=== PATIENT | female | born 1960 | race Caucasian/White ===

== ENCOUNTER → 2017-07-25 | Outpatient (CLI) | payer BC ==
--- NOTE | 2017-07-26 14:16 | WOMENS IMAGING REPORT ---
EXAM DESCRIPTION: 3D SCREENING MAMMO BILAT COMPLETED DATE/TIME: 07/25/2017 3:04 pm REASON FOR STUDY: SCREENING MAMMO Z12.31 ENCNTR SCREEN MAMMOGRAM FOR MALIGNANT NEOPLASM OF SAMANTA COMPARISON: 2011 to 2015 TECHNIQUE: Standard craniocaudal and mediolateral oblique views of each breast recorded using digita l acquisition and breast tomosynthesis. LIMITATIONS: None. FINDINGS: No masses, calcifications or architectural distortion. No areas of suspicion. Read with the assistance of CAD. .[facility] - R2 Cenova Version 1.3 .[facility] - R2 Cenova Version 1.3 .[facility] - R2 Cenova Version 2.4 .[facility] [place] - R2 Cenova Version 2.4 .[facility] - R2 Director Of Optimization Version 9.2 IMPRESSION: NORMAL MAMMOGRAM. BIRADS 1. BREAST DENSITY: b. There are scattered areas of fibroglandular density. BIRAD: 1 NEGATIVE RECOMMENDATION: ROUTINE SCREENING COMMENT: The patient has been notified of the results by letter per SA requirements. Additional no tification policies are in place for contacting patient with suspicious or incomplete findings. Quality ID #[id number]: The [employer] recommends an annual screening mammogram for women aged 40 years or over. This facility utilizes a reminder system to ensure that all patients receive reminder letters, and/or direct phone calls for appointments. This includes reminders for routine scr eening mammograms, diagnostic mammograms, or other Breast Imaging Interventions when appropriate. Th is patient will be placed in the appropriate reminder system. The [employer] (ACR) has developed recommendations for screening MRI of the breast s in certain patient populations, to be used in conjunction with mammography. Breast MRI surveillanc e may be appropriate for women with more than 20% lifetime risk of developing breast cancer as deter mined by genetic testing, significant family history of the disease, or history of mantle radiation f or Hodgkins Disease. ACR Practice Guidelines 2008. DBT Technology DBT is a type of tomographic mammography. With conventional mammography, overlapping breast tissue ma y make lesions difficult to detect, even with good compression. DBT uses an x-ray tube that rotates a round the breast, taking images at different angles. These images are then combined to create thin sl ices of the breast that the radiologist can view as a 3D reconstruction. The [facility] unit can perform full-field digital mammograms (2D imaging); or DBT (3D imaging); or both, in a combination mode that quickly performs both the mammogram and the tomosynthesis scan while the breast is still compressed. PQRS 6045F: Fluoroscopic imaging is not utilized for breast tomosynthesis. TECHNICAL DOCUMENTATION: FINDING NUMBER: (1) ASSESSMENT: (1) JOB ID: [id number] [employer]- All Rights Reserved
== END ==
LOC: WI 14:59
PROVIDERS: ATTEND Specialist
DX: Z12.31 Encounter for screening mammogram for malignant neoplasm of breast (principal)
CPT/HCPCS: 77063; G0202; 77067

== ENCOUNTER 2018-04-03 01:18 | Emergency (ER) | payer BC ==
[2018-04-03] MEDS ORDERED: ASPIRIN 81 MG TABLET, CHEWABLE PO ONE (02:11)
--- NOTE | 2018-04-03 02:11 | ER Document Report ---
ED General - General Chief Complaint: High Blood Pressure Stated Complaint: BLOOD PRESSURE ISSUES Time Seen by Provider: 04/03/18 01:51 Notes: This is a 57-year-old female to the emergency department for evaluation of chest tightness and high blood pressure. Patient states that she is dealing with issues with her 23-year-old son. There was a heated argument. Afterwards her blood pressure was 170/100 and had some tightness in her chest. Tingling in her left hand as well. No syncope. Did not pass out. No significant amount of pain at this time. TRAVEL OUTSIDE OF THE [place] IN LAST 30 DAYS: No - HPI Onset: Just prior to arrival Onset/Duration: Gradual, Better Severity: Mild Pain Level: 0 - Related Data Allergies/Adverse Reactions: tetracycline [Tetracycline] Allergy (Verified 03/21/13 17:59) Past Medical History - General Information source: Patient - Social History Smoking Status: Never Smoker Frequency of alcohol use: None Drug Abuse: None Lives with: Spouse/Significant other Family History: Reviewed & Not Pertinent - Past Medical History Cardiac Medical History: Reports: Hx Hypercholesterolemia, Hx Hypertension Endocrine Medical History: Reports: Hx Diabetes Mellitus Type 2 Past Surgical History: Reports: Hx Appendectomy, Hx Tonsillectomy, Hx Tubal Ligation - Immunizations Immunizations up to date: Yes Hx Diphtheria, Pertussis, Tetanus Vaccination: Yes Review of Systems - Review of Systems Notes: Constitutional: denies: Chills, Diaphoresis, Fever, Malaise, Weakness EENT: denies: Eye discharge, Blurred vision, Tearing, Double vision, Nose congestion, Nose discharge, Throat swelling, Mouth pain Cardiovascular: denies: Palpitations, Heart racing, Orthopnea, Dyspnea, Chest pain. Does feel like she might have some tightness in her chest. Respiratory: denies: Hurts to breathe, Wheezing, Shortness of breath. Does have a mild intermittent cough. Gastrointestinal: denies: Abdominal pain, Diarrhea, Nausea, Vomiting, Black stools, bright red blood in stool Genitourinary: denies: Burning, Dysuria, Discharge, Frequency, Flank pain, Hematuria Musculoskeletal: denies: Joint pain, Joint swelling, Muscle pain, Muscle stiffness, back pain Hematologic/Lymphatic: denies: Anemia, Easy bleeding, Easy bruising, Blood clots Neurological/Psychological: denies: Confusion, Dementia, Depression, Loss of consciousness, does have some mild tingling in her left hand. Skin: No lesions, no masses, no skin breakdown, no abscesses Physical Exam - Vital signs Vitals: Temp Pulse Resp BP Pulse Ox 98.2 F 89 20 151/81 H 100 04/03/18 01:33 04/03/18 01:33 04/03/18 01:33 04/03/18 01:33 04/03/18 01:33 Interpretation: Normal - General General appearance: Appears well, Alert - HEENT Head: Normocephalic, Atraumatic Eyes: Normal Pupils: PERRL - Respiratory Respiratory status: No respiratory distress Chest status: Nontender Breath sounds: Normal Chest palpation: Normal - Cardiovascular Rhythm: Regular Heart sounds: Normal auscultation Murmur: No - Abdominal Inspection: Normal Distension: No distension Bowel sounds: Normal Tenderness: Nontender Organomegaly: No organomegaly - Back Back: Normal, Nontender - Extremities General upper extremity: Normal inspection, Nontender, Normal color, Normal ROM , Normal temperature General lower extremity: Normal inspection, Nontender, Normal color, Normal ROM , Normal temperature, Normal weight bearing. No: Hina's sign - Neurological Neuro grossly intact: Yes Cognition: Normal Orientation: AAOx4 Jaelyn Coma Scale Eye Opening: Spontaneous Jaelyn Coma Scale Verbal: Oriented [place] Coma Scale Motor: Obeys Commands [place] Coma Scale Total: 15 Speech: Normal Motor strength normal: LUE, RUE, LLE, RLE Sensory: Normal - Psychological Associated symptoms: Normal affect, Normal mood - Skin Skin Temperature: Warm Skin Moisture: Dry Skin Color: Normal Course - Re-evaluation Re-evalutation: 04/03/18 05:27 First set of cardiac labs were unremarkable. Slight elevated WBC count. Chest pain/pressure is resolved. Tingling in her left hand has been resolved. I discussed with her about being admitted to the hospital. Patient is not sure she wants to do that at this time. Currently I am repeating the cardiac troponin. She would like to see what the result is before saying whether she will stay or not. 04/03/18 06:30 Second troponin negative. Offered admission but patient has refused. Wants to go home. Patient will be signed out AMA. Long discussion had with patient with regards to worsening pain. Patient understands that if she develops any worsening pain she needs to return. Patient wants to follow-up with her regular doctor as an outpatient. Will DC at this time. - Vital Signs Vital signs: Temp Pulse Resp BP Pulse Ox 98.2 F 89 20 151/81 H 98 04/03/18 01:33 04/03/18 01:33 04/03/18 01:33 04/03/18 01:33 04/03/18 02:22 - Laboratory Result Diagrams: 04/03/18 02:20 04/03/18 02:20 Laboratory results interpreted by me: 04/03/18 04/03/18 02:20 02:20 WBC 11.9 H RDW 15.4 H Sodium 147.0 H Chloride 108 H Est GFR (Non-Af Amer) 52 L Glucose 152 H - EKG Interpretation by Me EKG shows normal: Sinus rhythm, Avant, Intervals, QRS Complexes, ST-T Waves Discharge - Discharge Clinical Impression: Hypertension Qualifiers: Hypertension type: unspecified Qualified Code(s): I10 - Essential (primary) hypertension Chest pain Qualifiers: Chest pain type: unspecified Qualified Code(s): R07.9 - Chest pain, unspecified Condition: Good Disposition: HOME, SELF-CARE Instructions: High Blood Pressure ([facility]), Chest Pain of Unclear Cause ([facility]) Additional Instructions: Please follow-up with your primary care doctor. It would be beneficial for you to have a repeat stress test. This was offered to you today but you have decided not to be admitted for this further testing. In the event that your pain gets worse, you develop shortness of breath, you pass out or you have any concerning symptoms please return. Referrals: JAQUAN HUIZAR MD [Primary Care Provider] - 04/04/18 8:00 am
[2018-04-03 02:33] LABS: ABSOLUTE BASOPHILS # (AUTO) 0.1 10^3/uL (0.0-0.2); ABSOLUTE EOSINOPHILS # (AUTO) 0.1 10^3/uL (0.0-0.6); ABSOLUTE LYMPHOCYTES (AUTO) 3.2 10^3/uL (0.5-4.7); ABSOLUTE MONOCYTES (AUTO) 0.7 10^3/uL (0.1-1.4); ABSOLUTE NEUT (AUTO) 7.8 10^3/uL (1.7-8.2); BASOPHILS % (AUTO) 0.9 % (0-2); EOSINOPHILS % (AUTO) 1.2 % (0-6); HEMATOCRIT 43.8 % (36.0-47.0); HEMOGLOBIN 14.4 g/dL (12.0-15.5); LYMPHOCYTES % (AUTO) 26.7 % (13-45); MEAN CORPUSCULAR HEMOGLOBIN 27.5 pg (27.0-33.4); MEAN CORPUSCULAR HGB CONC 32.9 g/dL (32.0-36.0); MEAN CORPUSCULAR VOLUME 83 fl (80-97); PLATELET COUNT 270 10^3/uL (150-450); RED BLOOD COUNT 5.25 10^6/uL (3.72-5.28); RED CELL DISTRIBUTION WIDTH 15.4 % (11.5-14.0); SEGMENTED NEUTROPHILS % (AUTO) 65.2 % (42-78); TOTAL CELLS COUNTED % (AUTO) 100 %; WHITE BLOOD COUNT 11.9 10^3/uL (4.0-10.5)
[2018-04-03 02:50] LABS: ALANINE AMINOTRANSFERASE 29 U/L (9-52); ALKALINE PHOSPHATASE 109 U/L (38-126); ANION GAP 15 (5-19); ASPARTATE AMINO TRANSFERASE 33 U/L (14-36); BILIRUBIN,DIRECT 0.4 mg/dL (0.0-0.4); BILIRUBIN,TOTAL 0.4 mg/dL (0.2-1.3); BLOOD UREA NITROGEN 17 mg/dL (7-20); CALCIUM 9.5 mg/dL (8.4-10.2); CARBON DIOXIDE 24 mmol/L (22-30); CHLORIDE 108 mmol/L (98-107); CREATINE KINASE 36 U/L (30-135); GLUCOSE 152 mg/dL (75-110); POTASSIUM 4.3 mmol/L (3.6-5.0); TOTAL PROTEIN 7.4 g/dL (6.3-8.2)
[2018-04-03 03:00] LABS: CREATINE KINASE MB 0.44 ng/mL (<4.55)
--- NOTE | 2018-04-03 03:00 | RADIOLOGY REPORT (SQ) ---
EXAM DESCRIPTION: XR CHEST 1 VIEW COMPLETED DATE/TME: 04/03/2018 02:11 CLINICAL HISTORY: chest tightness, cough COMPARISON: None. FINDINGS: Single frontal view of the chest. Leads overlie the chest. The cardiomediastinal silhouette has normal size and contour. No consolidation, pneumothorax, or pleural effusion. No displaced rib fractures identified. Upper abdominal soft tissues are unremarkable. IMPRESSION: 1. No acute pulmonary process identified.
[2018-04-03 03:01] LABS: TROPONIN I < 0.012 ng/mL
[2018-04-03 06:57] VITALS: BP 136/90
--- NOTE | 2018-04-03 09:35 | EKG REPORT ---
SEVERITY:- BORDERLINE ECG - SINUS RHYTHM BORDERLINE R WAVE PROGRESSION, ANTERIOR LEADS : Confirmed by: Griffin Vargas 03-Apr-2018 09:33:52
== END 2018-04-03 06:44 | disposition home or self-care (01) ==
LOC: ER 01:18
DX: I10 Essential (primary) hypertension (principal); R07.89 Other chest pain; Z88.1 Allergy status to other antibiotic agents
CPT/HCPCS: 36415; 71045; 80053; 82550; 82553; 84484; 85025; 93005; 93010; 99284

== ENCOUNTER 2018-07-26 19:19 | Emergency (ER) | payer BC ==
[2018-07-26] MEDS ORDERED: OXYCODONE-ACETAMINOPHEN 5-325 MG TABLET PO ONE (20:03)
[2018-07-26] MEDS ORDERED: ONDANSETRON 4 MG TAB.RAPDIS PO ONE (20:03)
--- NOTE | 2018-07-26 20:05 | ER Document Report ---
ED General - General Chief Complaint: Hip Injury Stated Complaint: SEVERE LEFT HIP PAIN Time Seen by Provider: 07/26/18 19:46 Notes: Patient is a 57-year-old female that comes to the emergency department for chief complaint of lower back pain and left hip pain. She states she slipped awkwardly and caught herself on a railing, she did not hit the ground, she did not hit the railing, however now she has sharp pain in her lower back that is so sharp that she is having trouble walking. She denies numbness, pain does not radiate down the leg but it does radiate into the hip. She states she has struggled with left hip pain for a long time. She denies surgeries or injuries to the area particularly. She denies accidentally defecating, she states she urinated normally, she denies fever, she denies any other locations of pain. Past medical history of tubal ligation, hypertension, hyperlipidemia. Denies medical history otherwise. TRAVEL OUTSIDE OF THE [place] IN LAST 30 DAYS: No - Related Data Allergies/Adverse Reactions: tetracycline [Tetracycline] Allergy (Verified 03/21/13 17:59) Past Medical History - General Information source: Patient - Social History Smoking Status: Never Smoker Frequency of alcohol use: None Drug Abuse: None Lives with: Spouse/Significant other Family History: Reviewed & Not Pertinent - Past Medical History Cardiac Medical History: Reports: Hx Hypercholesterolemia, Hx Hypertension Renal/ Medical History: Denies: Hx Peritoneal Dialysis Past Surgical History: Reports: Hx Appendectomy, Hx Tonsillectomy, Hx Tubal Ligation - Immunizations Immunizations up to date: Yes Hx Diphtheria, Pertussis, Tetanus Vaccination: Yes Review of Systems - Review of Systems Constitutional: No symptoms reported EENT: No symptoms reported Cardiovascular: No symptoms reported Respiratory: No symptoms reported Gastrointestinal: No symptoms reported Genitourinary: No symptoms reported Female Genitourinary: No symptoms reported Musculoskeletal: See HPI Skin: No symptoms reported Hematologic/Lymphatic: No symptoms reported Neurological/Psychological: No symptoms reported Physical Exam - Vital signs Vitals: Temp Pulse Resp BP Pulse Ox 98.4 F 88 20 135/86 H 97 07/26/18 19:29 07/26/18 19:29 07/26/18 19:29 07/26/18 19:29 07/26/18 19:29 - Notes Notes: GENERAL: Patient obviously uncomfortable, wincing, shifting her weight on the bed HEAD: Normocephalic, atraumatic. EYES: Pupils equal, round, and reactive to light. Extraocular movements intact. ENT: Oral mucosa moist, tongue midline. Oropharynx unremarkable. Airway patent. Nares patent, no nasal septal hematoma, TM's intact. NECK: Full range of motion. Supple. Trachea midline. LUNGS: Clear to auscultation bilaterally, no wheezes, rales, or rhonchi. No respiratory distress. HEART: Regular rate and rhythm. No murmur ABDOMEN: Soft, non-tender. Non-distended. Bowel sounds present in all 4 quadrants. GENITOURINARY: Deferred EXTREMITIES: There is pain with palpation over the left hip and over the left moves all 4 extremities spontaneously. No edema, normal radial and dorsalis pedis pulses bilaterally. No cyanosis. Femoral bursa area. BACK: Pain with palpation of the left paraspinal musculature extending to the gluteus musculature. No cervical, thoracic, lumbar midline tenderness. No saddle anesthesia, normal distal neurovascular exam. NEUROLOGICAL: Alert and oriented x3. Normal speech. [cranial nerves II through XII grossly intact]. SKIN: Warm, dry, normal turgor. No rashes or lesions noted. Course - Re-evaluation Re-evalutation: On examination the area of pain appears to be the left paralumbar musculature extending to the left gluteal muscle, appears to be a bad muscle spasm, patient intermittently wincing or whimpering and appears uncomfortable. X-ray of the hip unremarkable. No neurological deficits. I have low suspicion of spinal cord compression, epidural abscess, infection based on her evaluation and symptoms reported. Patient was provided with pain medication and eventually IM Valium for the muscle spasm, muscle spasm did stop after this. Her symptom resolution is reassuring. Patient states she is ready to go home. I discussed treatment at home, expectations, follow-up, and return precautions. Patient states understanding and agreement. - Vital Signs Vital signs: Temp Pulse Resp BP Pulse Ox 97.7 F 73 18 131/74 H 96 07/26/18 22:49 07/26/18 22:49 07/26/18 22:49 07/26/18 22:49 07/26/18 22:49 Discharge - Discharge Clinical Impression: Muscle spasm Lower back pain Qualifiers: Chronicity: acute Back pain laterality: left Sciatica presence: without sciatica Qualified Code(s): M54.5 - Low back pain Condition: Stable Disposition: HOME, SELF-CARE Additional Instructions: The x-rays of the hip/pelvis are unremarkable. Your evaluation is consistent with muscle strain and back spasm. Take medications as prescribed, apply heat to the area, do gentle stretches and rest. This should resolve with time. Follow-up with primary care for additional evaluation and management of your back. Return if you worsen including numbness, inability to urinate, accidentally having a bowel movement, fever, or any other concerning or worsening symptoms. Prescriptions: Diazepam [Valium 5 mg Tablet] 1 - 2 tab PO TID PRN #12 tablet PRN Reason: Naproxen [Naprosyn 375 Mg Tablet] 375 mg PO BID PRN #20 tablet PRN Reason: Referrals: MAXI JOHNSON MD [ACTIVE STAFF] - Follow up as needed
--- NOTE | 2018-07-26 20:43 | RADIOLOGY REPORT (SQ) ---
EXAM DESCRIPTION: HIP LEFT AP/LATERAL COMPLETED DATE/TIME: 07/26/2018 8:12 pm REASON FOR STUDY: Fell from standing at home . Posterior hip pain that radiates to the groin. COMPARISON: None. NUMBER OF VIEWS: Two views. TECHNIQUE: AP pelvis and additional frog-leg view of the left hip. LIMITATIONS: None. FINDINGS: There is no acute fracture or dislocation. The bilateral hip joints are maintained. Tuba l ligation devices are noted at the pelvis. The soft tissues are unremarkable. IMPRESSION: No radiographic evidence for acute fracture or dislocation at the left hip. TECHNICAL DOCUMENTATION: JOB ID: [id number] 2010 [employer]- All Rights Reserved Reading location - IP/workstation name: [email or web address]
[2018-07-26] MEDS ORDERED: DIAZEPAM INJ 10 MG/2 ML DISP.SYRIN IM ONE (21:25)
[2018-07-26] MEDS ORDERED: NAPROXEN 250 MG TABLET PO ONE (21:54)
[2018-07-26 23:01] VITALS: BP 131/74
== END 2018-07-26 22:59 | disposition home or self-care (01) ==
LOC: ER 19:19
DX: M54.5 Low back pain (principal); M62.838 Other muscle spasm; W01.0XXA Fall on same level from slipping, tripping and stumbling without subsequent striking against object, initial encounter; I10 Essential (primary) hypertension; E78.5 Hyperlipidemia, unspecified; Z98.51 Tubal ligation status
CPT/HCPCS: 99283; 96372; 73502; J3360; S0119

== ENCOUNTER → 2018-07-28 | Outpatient (CLI) | payer BC ==
--- NOTE | 2018-07-28 15:18 | WOMENS IMAGING REPORT ---
EXAM DESCRIPTION: BILAT SCREENING MAMMO W/CAD COMPLETED DATE/TIME: 07/28/2018 9:00 am REASON FOR STUDY: SCREENING MAMMO Z12.31 ENCNTR SCREEN MAMMOGRAM FOR MALIGNANT NEOPLASM OF SAMANTA COMPARISON: 2012 to 2016 TECHNIQUE: Standard craniocaudal and mediolateral oblique views of each breast recorded using digita l acquisition. LIMITATIONS: None. FINDINGS: No masses, calcifications or architectural distortion. No areas of suspicion. Read with the assistance of CAD. .[facility] - R2 Cenova Version 1.3 .[facility] Imaging - R2 Cenova Version 1.3 .[facility] - R2 Cenova Version 2.4 .[facility] [place] - R2 Cenova Version 2.4 .[facility] - R2 Commercial [employer] Underwriter Version 9.2 IMPRESSION: NORMAL MAMMOGRAM. BIRADS 1. BREAST DENSITY: a. The breasts are almost entirely fatty. BIRAD: 1 NEGATIVE RECOMMENDATION: ROUTINE SCREENING COMMENT: The patient has been notified of the results by letter per MQSA requirements. Additional no tification policies are in place for contacting patient with suspicious or incomplete findings. Quality ID #[id number]: The [employer] recommends an annual screening mammogram for women aged 40 years or over. This facility utilizes a reminder system to ensure that all patients receive reminder letters, and/or direct phone calls for appointments. This includes reminders for routine scr eening mammograms, diagnostic mammograms, or other Breast Imaging Interventions when appropriate. Th is patient will be placed in the appropriate reminder system. The [employer] (ACR) has developed recommendations for screening MRI of the breast s in certain patient populations, to be used in conjunction with mammography. Breast MRI surveillanc e may be appropriate for women with more than 20% lifetime risk of developing breast cancer as deter mined by genetic testing, significant family history of the disease, or history of mantle radiation f or Hodgkins Disease. ACR Practice Guidelines 2008. TECHNICAL DOCUMENTATION: FINDING NUMBER: (1) ASSESSMENT: (1) JOB ID: [id number] [employer]- All Rights Reserved Reading location - IP/workstation name: [email or web address]
== END ==
LOC: WI 07:36
PROVIDERS: ATTEND Specialist
DX: Z12.31 Encounter for screening mammogram for malignant neoplasm of breast (principal)
CPT/HCPCS: 77067

== ENCOUNTER 2018-11-20 11:48 | Emergency (ER) | payer BC, OTHER ==
--- NOTE | 2018-11-20 12:31 | ER Document Report ---
ED Medical Screen (RME) - General Chief Complaint: Dizziness Stated Complaint: BLOOD PRESSURE ISSUES Time Seen by Provider: 11/20/18 12:25 Primary Care Provider: JOSE ALBERTO MEHTA PA [Primary Care Provider] - Follow up as needed TRAVEL OUTSIDE OF THE [place] IN LAST 30 DAYS: No - HPI Notes: 11/20/18 12:29 Patient is a 58-year-old female with a history of hypertension and diabetes as well as hypothyroidism who presents the emergency department complaining of dizziness, lightheadedness and feeling fatigued that began this morning. The doctor at her facility thought that she may have had a decrease in her sugar as her symptoms started after she began taking any medicine for diabetes. Patient states that since then she has started feeling better, but does continue to feel fatigued. She has not had any chest pain or dyspnea on exertion/shortness of breath. She is eating and drinking without difficulty. She is urinating normally. Denies GER[place], fever, neck pain, URI, CP, SOB, Abd pain, or rash. I have treated and performed a rapid initial assessment of this patient. A comprehensive ED assessment and evaluation of the patient, analysis of test results and completion of medical decision making process will be conducted by additional ED providers. PHYSICAL EXAMINATION: GENERAL: Well-appearing, well-nourished and in no acute distress. A&Ox4. Answers questions appropriately. LUNGS: Breath sounds clear to auscultation bilaterally and equal. No wheezes rales or rhonchi. HEART: Regular rate and rhythm without murmurs, rubs, gallops. Extremities: Trace pitting b/l LE's. NEUROLOGICAL: Normal speech, normal gait. PSYCH: Normal mood, normal affect. - Related Data Allergies/Adverse Reactions: tetracycline [Tetracycline] Allergy (Verified 03/21/13 17:59) Past Medical History - Social History Frequency of alcohol use: None - Past Medical History Cardiac Medical History: Reports: Hx Hypercholesterolemia, Hx Hypertension Endocrine Medical History: Reports: Hx Diabetes Mellitus Type 2 Renal/ Medical History: Denies: Hx Peritoneal Dialysis Past Surgical History: Reports: Hx Appendectomy, Hx Tonsillectomy, Hx Tubal Ligation - Immunizations Immunizations up to date: Yes Hx Diphtheria, Pertussis, Tetanus Vaccination: Yes Physical Exam - Vital signs Vitals: Temp Pulse Resp BP Pulse Ox 98.0 F 73 20 141/85 H 97 11/20/18 12:03 11/20/18 12:03 11/20/18 12:03 11/20/18 12:03 11/20/18 12:03 Course - Vital Signs Vital signs: Temp Pulse Resp BP Pulse Ox 98.0 F 73 20 141/85 H 97 11/20/18 12:03 11/20/18 12:03 11/20/18 12:03 11/20/18 12:03 11/20/18 12:03 Doctor's Discharge - Discharge Referrals: JOSE ALBERTO MEHTA PA [Primary Care Provider] - Follow up as needed
[2018-11-20 12:55] LABS: ABSOLUTE BASOPHILS # (AUTO) 0.1 10^3/uL (0.0-0.2); ABSOLUTE EOSINOPHILS # (AUTO) 0.1 10^3/uL (0.0-0.6); ABSOLUTE LYMPHOCYTES (AUTO) 3.3 10^3/uL (0.5-4.7); ABSOLUTE MONOCYTES (AUTO) 0.6 10^3/uL (0.1-1.4); ABSOLUTE NEUT (AUTO) 5.7 10^3/uL (1.7-8.2); BASOPHILS % (AUTO) 0.5 % (0-2); EOSINOPHILS % (AUTO) 1.4 % (0-6); HEMATOCRIT 47.7 % (36.0-47.0); HEMOGLOBIN 15.9 g/dL (12.0-15.5); LYMPHOCYTES % (AUTO) 33.8 % (13-45); MEAN CORPUSCULAR HEMOGLOBIN 28.3 pg (27.0-33.4); MEAN CORPUSCULAR HGB CONC 33.3 g/dL (32.0-36.0); MEAN CORPUSCULAR VOLUME 85 fl (80-97); MONOCYTES % (AUTO) 6.4 % (3-13); PLATELET COUNT 285 10^3/uL (150-450); RED BLOOD COUNT 5.61 10^6/uL (3.72-5.28); RED CELL DISTRIBUTION WIDTH 14.7 % (11.5-14.0); SEGMENTED NEUTROPHILS % (AUTO) 57.9 % (42-78); TOTAL CELLS COUNTED % (AUTO) 100 %; WHITE BLOOD COUNT 9.8 10^3/uL (4.0-10.5)
[2018-11-20 13:01] LABS: APPEARANCE,URINE SLIGHTLY-CLOUDY; BILIRUBIN,URINE NEGATIVE (NEGATIVE); COLOR,URINE STRAW; GLUCOSE, URINE >=500 mg/dL (NEGATIVE); KETONES,URINE NEGATIVE (NEGATIVE); LEUKOCYTE ESTERASE,URINE TRACE (NEGATIVE); NITRITE,URINE NEGATIVE (NEGATIVE); PROTEIN,URINE NEGATIVE (NEGATIVE); URINE SPECIFIC GRAVITY 1.001; UROBILINOGEN,URINE NEGATIVE mg/dL (<2.0)
[2018-11-20 13:24] LABS: ALANINE AMINOTRANSFERASE 27 U/L (9-52); ALBUMIN 4.6 g/dL (3.5-5.0); ALKALINE PHOSPHATASE 127 U/L (38-126); ANION GAP 12 (5-19); ASPARTATE AMINO TRANSFERASE 31 U/L (14-36); BILIRUBIN,DIRECT 0.3 mg/dL (0.0-0.4); BILIRUBIN,TOTAL 0.6 mg/dL (0.2-1.3); BLOOD UREA NITROGEN 19 mg/dL (7-20); CALCIUM 10.8 mg/dL (8.4-10.2); CARBON DIOXIDE 28 mmol/L (22-30); CHLORIDE 101 mmol/L (98-107); GLUCOSE 114 mg/dL (75-110); PHOSPHORUS 4.8 mg/dL (2.5-4.5); POTASSIUM 3.8 mmol/L (3.6-5.0); SODIUM 141.4 mmol/L (137-145); TOTAL PROTEIN 8.4 g/dL (6.3-8.2)
[2018-11-20] MEDS ORDERED: NORMAL SALINE 1000 ML 1,000 ML IV ONE (15:29)
--- NOTE | 2018-11-20 16:36 | ER Document Report ---
ED General - General Chief Complaint: Dizziness Stated Complaint: BLOOD PRESSURE ISSUES Time Seen by Provider: 11/20/18 12:25 Primary Care Provider: JOSE ALBERTO MEHTA PA [Primary Care Provider] - Follow up as needed Mode of Arrival: Ambulatory Information source: Patient, [facility] Records Notes: Patient is a 58-year-old female who comes to emergency room be sent by her of fice because she felt lightheaded and dizzy. Patient states she was at work and started to feel little lightheaded dizzy and felt like she is going to pass out. It came on her all of a sudden. She states she started a new medication yesterday Jardiance and actually today was the second day of taking the pill. Patient has a history of diabetes and has had difficulty with her sugars lately. She states they normally run in the area of 09/01/1927. She also had an elevated blood pressure work the first only took was 160/99 and the second 1 they took of 159/105. They contacted her primary care physician and he ended the office decided to send her here to the emergency room. TRAVEL OUTSIDE OF THE [place] IN LAST 30 DAYS: No - HPI Onset: Just prior to arrival Onset/Duration: Sudden Quality of pain: Achy Severity: Moderate Pain Level: 3 Associated symptoms: Weakness Exacerbated by: Denies Relieved by: Denies Similar symptoms previously: No Recently seen / treated by doctor: No - Related Data Allergies/Adverse Reactions: tetracycline [Tetracycline] Allergy (Verified 03/21/13 17:59) Past Medical History - General Information source: Patient, Relative - Social History Smoking Status: Never Smoker Cigarette use (# per day): No Chew tobacco use (# tins/day): No Smoking Education Provided: No Frequency of alcohol use: None Drug Abuse: None Lives with: Family Family History: Reviewed & Not Pertinent Patient has suicidal ideation: No Patient has homicidal ideation: No - Past Medical History Cardiac Medical History: Reports: Hx Hypercholesterolemia, Hx Hypertension Endocrine Medical History: Reports: Hx Diabetes Mellitus Type 2 Renal/ Medical History: Denies: Hx Peritoneal Dialysis Past Surgical History: Reports: Hx Appendectomy, Hx Tonsillectomy, Hx Tubal Ligation - Immunizations Immunizations up to date: Yes Hx Diphtheria, Pertussis, Tetanus Vaccination: Yes Review of Systems - Review of Systems Constitutional: Weakness EENT: No symptoms reported Cardiovascular: No symptoms reported Respiratory: No symptoms reported Gastrointestinal: No symptoms reported Genitourinary: No symptoms reported Female Genitourinary: No symptoms reported Musculoskeletal: No symptoms reported Skin: No symptoms reported Hematologic/Lymphatic: No symptoms reported Neurological/Psychological: See HPI -: Yes All other systems reviewed and negative Physical Exam - Vital signs Vitals: Temp Pulse Resp BP Pulse Ox 98.0 F 73 20 141/85 H 97 11/20/18 12:03 11/20/18 12:03 11/20/18 12:03 11/20/18 12:03 11/20/18 12:03 Interpretation: Hypertensive - Notes Notes: PHYSICAL EXAMINATION: GENERAL: Well-appearing, well-nourished and in no acute distress. HEAD: Atraumatic, normocephalic. EYES: Pupils equal round and reactive to light, extraocular movements intact, conjunctiva are normal. ENT: Nares patent, oropharynx clear without exudates. Moist mucous membranes. NECK: Normal range of motion, supple without lymphadenopathy LUNGS: Breath sounds clear to auscultation bilaterally and equal. No wheezes rales or rhonchi. HEART: Regular rate and rhythm without murmurs ABDOMEN: Soft, nontender, nondistended abdomen. No guarding, no rebound. No masses appreciated. Female : deferred Musculoskeletal: Normal range of motion, no pitting or edema. No cyanosis. NEUROLOGICAL: Cranial nerves grossly intact. Normal speech, normal gait. Normal sensory, motor exams, NIH score is 0. Patient also has a negative Romberg. Patient's neurologic check is 100% normal. PSYCH: Normal mood, normal affect. SKIN: Warm, Dry, normal turgor, no rashes or lesions noted. Course - Re-evaluation Re-evalutation: 11/20/18 17:27 And talking to patient it sounds like she may have had a hypoglycemic event while at work or at least a dehydration kind of a presentation. She had just started a new medication called Jardiance and she is wanting to pills this morning she took the pill approximately at 6 AM and she ate about 6:30 AM the event occurred between 10 and 10:30 AM. Patient was more concerned about her blood pressure anything else. Currently in the ER she is having no symptoms - Vital Signs Vital signs: Temp Pulse Resp BP Pulse Ox 97.7 F 82 16 145/80 H 100 11/20/18 16:55 11/20/18 16:55 11/20/18 16:55 11/20/18 16:55 11/20/18 16:55 - Laboratory Result Diagrams: 11/20/18 12:45 11/20/18 12:45 Laboratory results interpreted by me: 11/20/18 11/20/18 11/20/18 12:45 12:45 12:45 RBC 5.61 H Hgb 15.9 H Hct 47.7 H RDW 14.7 H Est GFR ( Amer) 56 L Est GFR (Non-Af Amer) 46 L Glucose 114 H Calcium 10.8 H Phosphorus 4.8 H Alkaline Phosphatase 127 H Total Protein 8.4 H TSH 4.81 H Urine Glucose (UA) Ur Leukocyte Esterase 11/20/18 12:45 RBC Hgb Hct RDW Est GFR ( Amer) Est GFR (Non-Af Amer) Glucose Calcium Phosphorus Alkaline Phosphatase Total Protein TSH Urine Glucose (UA) >=500 H Ur Leukocyte Esterase TRACE H Discharge - Discharge Clinical Impression: Hypoglycemic disorder, Orthostatic hypertension Condition: Good Disposition: HOME, SELF-CARE Instructions: Dizziness ([facility]) Additional Instructions: As we discussed I believe you are having part of the your problem is with the medication being new that is causing her sugars that dropped to normal but they are not used to. And probably did so with a relatively fast rate. At this time the reason for your blood pressure going up is probably because of anxiety not know why her pressure why you had such a feeling normal responses for blood pressure to go up. If it went down we do have a different type of diagnosis. Anyway monitor your food monitor your blood sugars return to ER if you have any concerns or problems. Forms: Elevated Blood Pressure, Parent Work Note, Return to Work Referrals: JOSE ALBERTO MEHTA PA [Primary Care Provider] - Follow up as needed
[2018-11-20 17:51] VITALS: BP 136/75
--- NOTE | 2018-11-20 17:59 | EKG REPORT ---
SEVERITY:- BORDERLINE ECG - SINUS RHYTHM PROBABLE LEFT ATRIAL ABNORMALITY BORDERLINE R WAVE PROGRESSION, ANTERIOR LEADS : Confirmed by: Griffin Vargas 20-Nov-2018 17:58:17
== END 2018-11-20 17:58 | disposition home or self-care (01) ==
LOC: ER 11:48
DX: E11.649 Type 2 diabetes mellitus with hypoglycemia without coma (principal); I95.1 Orthostatic hypotension; R42 Dizziness and giddiness; R53.1 Weakness; E78.00 Pure hypercholesterolemia, unspecified; I10 Essential (primary) hypertension; Z98.51 Tubal ligation status
CPT/HCPCS: 93005; 99284; 36415; 87086; 82962; 83735; 84100; 84443; 85025; 80053; 81001; 93010; J7030

== ENCOUNTER → 2019-07-29 | Outpatient (CLI) | payer OTHER ==
--- NOTE | 2019-07-29 11:17 | WOMENS IMAGING REPORT ---
EXAM DESCRIPTION: 3D SCREENING MAMMO BILAT COMPLETED DATE/TIME: 07/29/2019 7:41 am REASON FOR STUDY: Z12.31 ENCOUNTER FOR SCREENING MAMMOGRAM FOR MALIGNANT NEOPLASM OF BREAST Z12.31 ENCNTR SCREEN MAMMOGRAM FOR MALIGNANT NEOPLASM OF SAMANTA COMPARISON: 2016 EXAM PARAMETERS: Views: Standard craniocaudal and mediolateral oblique views of each breast recorded using digital acquisition and breast tomosynthesis. Read with the assistance of CAD. .[facility] - [employer] Version 9.2 LIMITATIONS: None. FINDINGS: No suspicious masses, suspicious calcifications or architectural distortion. No areas of c oncern. IMPRESSION: NEGATIVE MAMMOGRAM. BIRADS 1. BREAST DENSITY: b. There are scattered areas of fibroglandular density. BIRAD: ASSESSMENT: 1 NEGATIVE RECOMMENDATION: ROUTINE SCREENING COMMENT: The patient has been notified of the results by letter per MQSA requirements. Additional no tification policies are in place for contacting patient with suspicious or incomplete findings. Quality ID #225: The [employer] recommends an annual screening mammogram for women aged 40 years or over. This facility utilizes a reminder system to ensure that all patients receive reminder letters, and/or direct phone calls for appointments. This includes reminders for routine scr eening mammograms, diagnostic mammograms, or other Breast Imaging Interventions when appropriate. Th is patient will be placed in the appropriate reminder system. TECHNICAL DOCUMENTATION: FINDING NUMBER: (1) ASSESSMENT: (1) JOB ID: [id number] [employer]- All Rights Reserved Reading location - IP/workstation name: [email or web address]
== END ==
LOC: WI 07:02
PROVIDERS: ATTEND Specialist
DX: Z12.31 Encounter for screening mammogram for malignant neoplasm of breast (principal)
CPT/HCPCS: 77063; 77067

== ENCOUNTER → 2019-12-09 | Outpatient (CLI) | payer OTHER ==
--- NOTE | 2019-12-09 16:23 | RADIOLOGY REPORT (SQ) ---
EXAM DESCRIPTION: ACUTE ABDOMEN SERIES IMAGES COMPLETED DATE/TIME: 12/09/2019 3:56 pm REASON FOR STUDY: GENERALIZED ABDOMINAL PAIN R10.84 GENERALIZED ABDOMINAL PAIN COMPARISON: None. NUMBER OF VIEWS: Three views. TECHNIQUE: Frontal chest, supine abdomen and upright/decubitus abdomen radiographic images acquired. LIMITATIONS: None. FINDINGS: CHEST: Lungs clear of infiltrates. FREE AIR: None. No abnormal gas collections. BOWEL GAS PATTERN: Nonobstructive pattern. No dilated loops or air fluid levels. CALCIFICATIONS: No suspicious calcifications. HARDWARE: None in the abdomen. SOFT TISSUES: No gross mass or suggestion of organomegaly. BONES: No acute fracture. No worrisome bone lesions. OTHER: No other significant finding. IMPRESSION: NO RADIOGRAPHIC EVIDENCE FOR ACUTE ABDOMINAL DISEASE. TECHNICAL DOCUMENTATION: JOB ID: [id number] 2010 [employer]- All Rights Reserved Reading location - IP/workstation name: [email or web address]
[2019-12-09 16:30] LABS: ABSOLUTE BASOPHILS # (AUTO) 0.1 10^3/uL (0.0-0.2); ABSOLUTE EOSINOPHILS # (AUTO) 0.2 10^3/uL (0.0-0.6); ABSOLUTE LYMPHOCYTES (AUTO) 3.7 10^3/uL (0.5-4.7); ABSOLUTE MONOCYTES (AUTO) 0.8 10^3/uL (0.1-1.4); ABSOLUTE NEUT (AUTO) 5.9 10^3/uL (1.7-8.2); BASOPHILS % (AUTO) 1.2 % (0-2); HEMATOCRIT 41.8 % (36.0-47.0); HEMOGLOBIN 14.1 g/dL (12.0-15.5); LYMPHOCYTES % (AUTO) 34.3 % (13-45); MEAN CORPUSCULAR HEMOGLOBIN 28.4 pg (27.0-33.4); MEAN CORPUSCULAR HGB CONC 33.7 g/dL (32.0-36.0); MEAN CORPUSCULAR VOLUME 84 fl (80-97); MONOCYTES % (AUTO) 7.6 % (3-13); PLATELET COUNT 238 10^3/uL (150-450); RED BLOOD COUNT 4.96 10^6/uL (3.72-5.28); RED CELL DISTRIBUTION WIDTH 14.4 % (11.5-14.0); SEGMENTED NEUTROPHILS % (AUTO) 54.9 % (42-78); TOTAL CELLS COUNTED % (AUTO) 100 %; WHITE BLOOD COUNT 10.7 10^3/uL (4.0-10.5)
[2019-12-09 16:59] LABS: ALBUMIN 4.3 g/dL (3.5-5.0); ALKALINE PHOSPHATASE 103 U/L (38-126); ANION GAP 10 (5-19); ASPARTATE AMINO TRANSFERASE 34 U/L (14-36); BILIRUBIN,TOTAL 0.4 mg/dL (0.2-1.3); BLOOD UREA NITROGEN 17 mg/dL (7-20); CALCIUM 9.6 mg/dL (8.4-10.2); CARBON DIOXIDE 29 mmol/L (22-30); CHLORIDE 99 mmol/L (98-107); GLUCOSE 148 mg/dL (75-110); POTASSIUM 3.9 mmol/L (3.6-5.0); TOTAL PROTEIN 7.7 g/dL (6.3-8.2)
== END ==
LOC: OD 15:27
PROVIDERS: ATTEND Physician Assistant
DX: R10.84 Generalized abdominal pain (principal)
CPT/HCPCS: 36415; 74022; 80053; 83690; 85025

== ENCOUNTER → 2019-12-10 | Outpatient (CLI) | payer OTHER ==
--- NOTE | 2019-12-10 13:38 | RADIOLOGY REPORT (SQ) ---
EXAM DESCRIPTION: CT ABD/PELVIS ORAL ONLY IMAGES COMPLETED DATE/TIME: 12/10/2019 1:18 pm REASON FOR STUDY: R10.84 GENERALIZED ABDOMINAL PAIN, R11.0 NAUSEA, D72.829 ELEVATED WHITE BLO R10.84 GENERALIZED ABDOMINAL PAIN R11.0 NAUSEA D72.829 ELEVATED WHITE BLOOD CELL COUNT, UNSPECIFIED COMPARISON: None. TECHNIQUE: CT scan of the abdomen and pelvis performed with oral contrast and no intravenous contras t. Images reviewed with lung, soft tissue, and bone windows. Reconstructed coronal and sagittal MPR i mages reviewed. All images stored on PACS. All CT scanners at this facility use dose modulation, iterative reconstruction, and/or weight based d osing when appropriate to reduce radiation dose to as low as reasonably achievable (ALARA). [facility]: Dose Right [facility]: CareDose [facility]: Dose Right [facility]: Teradose 4D [facility]: [employer] RADIATION DOSE: CT Rad equipment meets quality standard of care and radiation dose reduction techniq ues were employed. CTDIvol: 24.7 mGy. DLP: 1344 mGy-cm. mGy. LIMITATIONS: None. FINDINGS: LOWER CHEST: Small hiatal hernia. NON-CONTRASTED LIVER, SPLEEN, ADRENALS: Evaluation limited by lack of IV contrast. No identified sign ificant masses. PANCREAS: No masses. No peripancreatic inflammatory changes. GALLBLADDER: Gallstones. No inflammatory changes to suggest cholecystitis. RIGHT KIDNEY AND URETER: No suspicious masses. Assessment limited by lack of IV contrast. No signif icant calcifications. No hydronephrosis or hydroureter. LEFT KIDNEY AND URETER: No suspicious masses. Assessment limited by lack of IV contrast. No signifi cant calcifications. No hydronephrosis or hydroureter. AORTA AND RETROPERITONEUM: No aneurysm. No retroperitoneal masses or adenopathy. BOWEL AND PERITONEAL CAVITY: No obvious masses or inflammatory changes. No free fluid. APPENDIX: Surgically absent. PELVIS, BLADDER, AND ABDOMINAL WALL: No abnormal pelvic masses. No abdominal wall hernias. Bladder un remarkable. BONES: No significant findings. OTHER: No other significant finding. IMPRESSION: Cholelithiasis. No acute findings. TECHNICAL DOCUMENTATION: JOB ID: [id number] Quality ID # [id number]: Final reports with documentation of one or more dose reduction techniques (e.g., Au tomated exposure control, adjustment of the mA and/or kV according to patient size, use of iterative reconstruction technique) 2010 [email or web address]- All Rights Reserved Reading location - IP/workstation name: [email or web address]
== END ==
LOC: RAD 10:49
PROVIDERS: ATTEND Physician Assistant
DX: K80.20 Calculus of gallbladder without cholecystitis without obstruction (principal); R10.84 Generalized abdominal pain; R11.0 Nausea; D72.829 Elevated white blood cell count, unspecified; K44.9 Diaphragmatic hernia without obstruction or gangrene
CPT/HCPCS: 74176

== ENCOUNTER 2020-02-11 06:55 | Day surgery (SDC) | payer OTHER ==
[2020-02-05 10:54] LABS: HEMATOCRIT 41.5 % (36.0-47.0); HEMOGLOBIN 13.9 g/dL (12.0-15.5); MEAN CORPUSCULAR HEMOGLOBIN 28.2 pg (27.0-33.4); MEAN CORPUSCULAR HGB CONC 33.6 g/dL (32.0-36.0); MEAN CORPUSCULAR VOLUME 84 fl (80-97); PLATELET COUNT 242 10^3/uL (150-450); RED BLOOD COUNT 4.94 10^6/uL (3.72-5.28); RED CELL DISTRIBUTION WIDTH 14.4 % (11.5-14.0); WHITE BLOOD COUNT 10.1 10^3/uL (4.0-10.5)
[2020-02-05 11:12] LABS: ALKALINE PHOSPHATASE 98 U/L (38-126); AMYLASE 74 U/L (30-110); ANION GAP 9 (5-19); ASPARTATE AMINO TRANSFERASE 29 U/L (14-36); BILIRUBIN,TOTAL 0.3 mg/dL (0.2-1.3); BLOOD UREA NITROGEN 21 mg/dL (7-20); CALCIUM 9.8 mg/dL (8.4-10.2); CARBON DIOXIDE 27 mmol/L (22-30); CHLORIDE 103 mmol/L (98-107); GLUCOSE 175 mg/dL (75-110); POTASSIUM 4.1 mmol/L (3.6-5.0); TOTAL PROTEIN 7.3 g/dL (6.3-8.2)
[~2020-02-11 06:55] MED LIST: ACETAMINOPHEN 325 MG TABLET PO PRN; CEFAZOLIN 1 GM/D5W RTU 1 GM/50 ML RTUPB IV PRN; LACTATED RINGERS 1000 ML IV PRN; LIDOCAINE 0.5% INJ-PF (5 MG/ML) 50 ML SDV SUBCUT PRN
[2020-02-11] MEDS ORDERED: FENTANYL CITRATE INJ/PF 100 MCG/2 ML AMPUL ONE (06:56)
[2020-02-11] MEDS ORDERED: MIDAZOLAM 2 MG/2 ML INJ ONE (06:57)
[2020-02-11] MEDS ORDERED: PROPOFOL INJ 200 MG/20 ML VIAL IV ONE (06:57)
[2020-02-11] MEDS ORDERED: BUPIVACAINE HCL 0.25 % INJ/PF (2.5 MG/1 ML) 30 ML VIAL ONE (07:19)
[2020-02-11] MEDS ORDERED: CEFAZOLIN 1 GM/D5W RTU 1 GM/50 ML RTUPB IV ONE (07:43)
[2020-02-11] MEDS ORDERED: DEXMEDETOMIDINE INJ 80 MCG/20 ML VIAL IV ONE (08:44)
[2020-02-11 09:14] LABS: POTASSIUM 4.2 mmol/L (3.6-5.0)
[2020-02-11] MEDS ORDERED: FENTANYL CITRATE INJ/PF 100 MCG/2 ML AMPUL IV PRN ×3 (09:20)
[2020-02-11] MEDS ORDERED: MORPHINE SULFATE 10 MG/ML INJ IV PRN (09:20)
[2020-02-11] MEDS ORDERED: OXYCODONE-ACETAMINOPHEN 5-325 MG TABLET PO PRN ×3 (09:20→09:55)
[2020-02-11] MEDS ORDERED: MEPERIDINE HCL/PF INJ 25 MG/1 ML DISP.SYRIN IV PRN (09:20)
[2020-02-11] MEDS ORDERED: ONDANSETRON HCL INJ/PF 4 MG/2 ML SDV IV PRN (09:20)
[2020-02-11] MEDS ORDERED: DIPHENHYDRAMINE HCL 50 MG/ML VIAL IV PRN (09:20)
[2020-02-11] MEDS ORDERED: PROMETHAZINE HCL INJ 25 MG/1 ML VIAL IV PRN (09:20)
--- NOTE | 2020-02-11 09:55 | Discharge Summary ---
Discharge Summary (SDC) - Discharge Final Diagnosis: symptomatic cholelithiasis Date of Surgery: 02/11/20 Discharge Date: 02/11/20 Condition: Good Treatment or Instructions: [facility] [address], [place] [address] Discharge Instructions: Laparoscopic Surgery 1. General Information: a. DO NOT DRIVE a car or operate dangerous machinery for 3-4 days or while taking narcotic pain pills. b. DO NOT consume alcohol, tranquilizers, sleeping medications or any non- prescribed medications for 24 hours unless approved by your doctor or as long as taking narcotic prescription medications. c. DO NOT make important decisions or sign any important papers for the first 24 hours after surgery. d. When discharged home the same day of surgery have a responsible person with you for the first night. 2. Activity Restrictions: 2 weeks . a. NO heavy lifting, straining abdominal muscles, bending over a lot, yard work, house work, or sports for [address] for 3-4 days c. It is fine to go for walks, up and down steps, ride in a car. d. Elevate your head when sleeping/resting. 3. Treatment: a. You may shower 24 hours after surgery, no baths or swimming for 2 weeks. Remove band-aids or dressings before shower but leave paper strips (steri- strips) on the skin to fall off on their own. If still on at postoperative visit they will be removed then. b. Drainage of fluid or blood is not unusual from an incision. If occurs, you can clean with peroxide and cotton ball daily and cover with dry gauze until the wound seals. c. If a lot of bleeding occurs, you can hold pressure with a gauze or cloth over the site for 10 minutes and it will usually stop. If bleeding continues you will need to call for possible evaluation in office or emergency room. 4. Medications: a. __Percocet_ may be taken for pain as needed, one tablet every 6 hours. Stop the narcotic when able since you cannot take it and drive, and they cause constipation. You may switch to plain Tylenol, Advil or Aleve as you transition from the narcotic. Many adults find good pain relief with Advil 600-800 mg three times a day with meals. This can cause indigestion, ulcers, and kidney problems with long-term use. b. You should resume all normal medications unless a change is specified by your doctors. c. Antibiotic(s) if needed ( NONE) 5. Diet: Begin with clear liquids and may progress to your normal diet if not nauseated. No high fat, high protein foods the day of surgery. 6. The following may occur after laparoscopic surgery: a. Shoulder or upper back ache from retained gas that should resolve in 1-2 days b. Soreness and bruising at incision sites will resolve with time. c. Scrotal swelling (labia in women) and bruising is often seen after hernia surgery. d. Sore throat e. Fatigue may last days to weeks. f. Difficulty urinating may occur and may need to come into emergency room for urinary catheter placement. 7. Notify Physician If: a. Worsening or pain not improved with pain medication b. Persistent nausea and vomiting c. Fever above 101 d. Persistent bleeding or swelling at operative site e. Unable to urinate and uncomfortable bladder 6-8 hours after surgery 8..Follow Up Care: a. Schedule a follow up appointment with your doctor for 2 weeks. In the event of any postoperative problems or questions or you may call the office during business hours or the On-Call physician evenings and weekends at [facility]. [facility] I understand the instructions for my postoperative care as described above and a copy has been given to me. Patient/Significant Other Witness Date Prescriptions: Oxycodone HCl/Acetaminophen [Percocet 5-325 mg Tablet] 1 tab PO Q6 PRN #15 tab PRN Reason: Referrals: JOSE ALBERTO ARIAS PA-C [Primary Care Provider] - Discharge Diet: Other (Comments) - small bland portions then progress Discharge Activity: Balance Activity w/Rest, Walk Frequently Report the Following to Your Physician Immediately: Nausea, Vomiting, Increase in Pain, Fever over 101 Degrees, Unusual Bleeding, Redness, Swelling, Warmth, Increased Soreness, Drainage-Yellow, Drainage-Foul Smelling
--- NOTE | 2020-02-11 09:57 | Operative Report ---
Operative Report DATE OF SURGERY: 02/11/20 PREOPERATIVE DIAGNOSIS: Symptomatic cholelithiasis with cholecystitis POSTOPERATIVE DIAGNOSIS: Same OPERATION: Laparoscopic cholecystectomy SURGEON: MAXI MENA PLAYER PIANO TECHNICIAN: KATY COLUNGA ANESTHESIA: GA TISSUE REMOVED OR ALTERED: 1 gallbladder with contents COMPLICATIONS: none ESTIMATED BLOOD LOSS: Scant INTRAOPERATIVE FINDINGS: See below PROCEDURE: After obtaining informed consent, the patient was taken to the operating room. General Anesthesia was induced; the arms were extended, and the abdomen was exposed, and prepped and draped in a sterile fashion. Instrumentation was set up for laparoscopic cholecystectomy. Surgical plan and surgical timeout were conducted. A vertical incision was made above the umbilicus, and a verres needle was inserted uneventfully into the peritoneal cavity. Pneumoperitoneum was established. The verres needle was removed and a 5 mm trocar was inserted and a 5 mm flexible laparoscope was inserted. Visualization of the peritoneal cavity confirmed safe uneventful entry. Under direct visualization 3 additional 5 mm ports were established, one in the subxiphoid position and second in the subcostal position. The findings were significant for a very small gallbladder, approximately 3 to 4 cm in length. We elevated the liver right lobe to optimize exposure. With the patient in the reverse Trendelenburg, and tilted to the left, we began taking the gallbladder down from the fundus. This proceeded uneventfully, opening up the plane very cleanly between the deep surface of the gallbladder and the inferior surface of the liver. Eventually the gallbladder was suspended solely from the cystic duct and the cystic artery. The cystic artery was clipped one time approximately, 1 time distally and divided with scissors. Because of the very small size of the gallbladder, and the challege getting optimal exposure due to the relatively large liver and tucked in nature of the anatomy, I felt that we should divide the cystic duct at the level currently exposed. Of note the bowel bladder hardly tapered towards its neck and cystic duct. Therefore we placed a 0Endoloop around the neck of the gallbladder, opened the cystic duct proximally, and milked some sludge and grit out of the cystic duct. We now brought another Endoloop onto the field and secured it on the proximal side of the cystic duct opening. The cystic duct was now divided between the 2 loops. The gallbladder is removed from the the patient uneventfully. We returned to the peritoneal cavity check for bleeding, and evidence of bile leak, and there was none. We Confirmed satisfactory placement of clips on cystic duct and cystic artery were secured . At this point we felt the operation was complete. The subcutaneous tissue was then anesthetized with quarter percent Marcaine Sponge and needle counts are correct. All ports removed under direct visualization pneumoperitoneum evacuated, and 5 mm port wounds closed with 3-0 Vicryl suture, benzoin and Steri-Strips. The patient was extubated, and taken to the recovery room in stable condition. The physician process assistant, Ms. Carvajal, provided assistance during this case by: Assisting and port insertion, retracting tissue, instillation of local anesthesia and closure of skin incisions.
[2020-02-11] MEDS ORDERED: OXYCODONE-ACETAMINOPHEN 5-325 MG TABLET ONE (11:00)
[2020-02-11] MEDS ORDERED: DEXAMETHASONE SOD PHOSPHATE INJ 4 MG/1 ML VIAL ONE (12:41)
[2020-02-11] MEDS ORDERED: ONDANSETRON HCL INJ/PF 4 MG/2 ML SDV ONE (12:41)
[2020-02-11] MEDS ORDERED: SUCCINYLCHOLINE CHLORIDE INJ 200 MG/10 ML VIAL ONE (12:41)
[2020-02-11] MEDS ORDERED: ROCURONIUM BROMIDE INJ 50 MG/5 ML VIAL IV ONE (12:41)
[2020-02-11] MEDS ORDERED: KETOROLAC TROMETHAMINE 60 MG/2 ML SDV ONE (12:41)
[2020-02-11 13:01] VITALS: BP 142/88
== END 2020-02-11 12:05 | disposition home or self-care (01) ==
LOC: OROUT 06:55
PROVIDERS: ATTEND Surgery
DX: K81.1 Chronic cholecystitis (principal); E11.9 Type 2 diabetes mellitus without complications; E78.00 Pure hypercholesterolemia, unspecified; I10 Essential (primary) hypertension; E03.9 Hypothyroidism, unspecified; Z79.899 Other long term (current) drug therapy; Z79.84 Long term (current) use of oral hypoglycemic drugs; Z79.82 Long term (current) use of aspirin; E66.9 Obesity, unspecified; Z03.818 Encounter for observation for suspected exposure to other biological agents ruled out
CPT/HCPCS: 36415 ×2; 82150; 82947; 84132; 85027; 87635; 80076; 80048; 88304 ×2; 47562; J2250; J0690; J3490 ×2; J1100; J1885; J3010; J0330; J2405; J2704; C9803; 790

== ENCOUNTER 2020-02-13 20:26 | Emergency (ER) | payer OTHER ==
[2020-02-13 20:31] VITALS: BP 152/75
--- NOTE | 2020-02-13 21:38 | ER Document Report ---
HPI - HPI Patient complains to provider of: Steri-Strips falling off surgical wound Time Seen by Provider: 02/13/20 21:14 Onset: This evening Onset/Duration: Gradual Severity: Moderate Pain Level: 3 Context: 59-year-old female presented to ED for complaint of Steri-Strips coming off of her surgical wounds. She states she had her gallbladder removed on and the Steri-Strips started coming off tonight. She states she does feel bloated she has not had a bowel movement since Saturday and she is having some pain in the surgical sites. She states she is taken a Percocet the day of surgery and another one last night and she plans to take another one tonight but she has not taken them will often. I have told her that she could take Tylenol as long as she had not taken Percocet within 4 hours. Associated Symptoms: Other - Surgical pain and her Steri-Strips are coming off of her sites Exacerbated by: Movement Relieved by: Remaining still Similar symptoms previously: Yes Recently seen / treated by doctor: Yes - ROS ROS below otherwise negative: Yes - CONSTITUTIONAL Constitutional: DENIES: Fever, Chills - EENT EENT: DENIES: Sore Throat, Ear Pain, Nasal Drainage-Clear, Nasal Drainage- Purulent, Congestion, Eye problems - NEURO Neurology: DENIES: Headache, Weakness, Vision blurred, Dizzinesss / Vertigo - CARDIOVASCULAR Cardiovascular: DENIES: Chest pain - RESPIRATORY Respiratory: DENIES: Trouble Breathing, Coughing - GASTROINTESTINAL Gastrointestinal: REPORTS: Abdominal Pain - At surgical sites. DENIES: Nausea, Patient vomiting, Diarrhea, Constipation, Black / Bloody Stools - URINARY Urinary: DENIES: Dysuria, Urgency, Frequency - REPRODUCTIVE Reproductive: DENIES: :, Postmenopausal, Abnormal bleeding / discharge - MUSCULOSKELETAL Musculoskeletal: DENIES: Extremity pain, Back Pain, Neck Pain, Swelling - DERM Skin Color: Other - Surgical sites healing well Steri-Strips come off of the one at the umbilicus. This was replaced in the emergency room. Past Medical History - General Information source: Patient - Social History Smoking Status: Never Smoker Chew tobacco use (# tins/day): No Frequency of alcohol use: None Drug Abuse: None Lives with: Family Family History: Reviewed & Not Pertinent Patient has homicidal ideation: No - Past Medical History Cardiac Medical History: Reports: Hx Hypercholesterolemia, Hx Hypertension Pulmonary Medical History: Reports: None EENT Medical History: Reports: None Neurological Medical History: Reports: None Endocrine Medical History: Reports: Hx Diabetes Mellitus Type 2 Renal/ Medical History: Reports: None Malignancy Medical History: Reports: None GI Medical History: Reports: None Musculoskeletal Medical History: Reports None Skin Medical History: Reports None Psychiatric Medical History: Reports: None Traumatic Medical History: Reports: None Infectious Medical History: Reports: None Past Surgical History: Reports: Hx Appendectomy, Hx Cholecystectomy, Hx Tonsillectomy, Hx Tubal Ligation - Immunizations Immunizations up to date: Yes Hx Diphtheria, Pertussis, Tetanus Vaccination: Yes Vertical Provider Document - CONSTITUTIONAL Agree With Documented VS: Yes - INFECTION CONTROL TRAVEL OUTSIDE OF THE [place] IN LAST 30 DAYS: No - HEENT HEENT: Atraumatic, Normal ENT Exam, Normocephalic, PERRLA - NECK Neck: Normal Inspection, Supple, Thyroid Normal - RESPIRATORY Respiratory: Breath Sounds Normal, No Respiratory Distress - CARDIOVASCULAR Cardiovascular: Regular Rate, Regular Rhythm, No Murmur - GI/ABDOMEN Gastrointestinal: Abdomen Tender - Surgical sites, No Organomegaly, Normal Bowel Sounds Notes: Abdomen mildly distended due to recent cholecystectomy, surgical wound is healing well, Steri-Strips, and off of surgical site at umbilicus with these were replaced. - BACK Back: Normal Inspection - MUSCULOSKELETAL/EXTREMETIES Musculoskeletal/Extremeties: JIHAN LAU, Non-Tender - NEURO Level of Consciousness: Awake, Alert, Appropriate Motor/Sensory: No Motor Deficit, No Sensory Deficit Deep Tendon Reflexes: 2+ - DERM Notes: Tenderness at surgical sites to umbilicus and abdomen from surgery on . Steri-Strips to surgical site at umbilicus were falling off these were replaced Course - Re-evaluation Re-evalutation: 02/13/20 21:49 Steri-Strips at umbilicus were falling off. These were completely removed benzoin applied to the area and new Steri-Strips applied. Patient was instructed to how to care for Steri-Strips to prevent this happening again. Patient was encouraged to call her surgeon and let him know that I replaced the Steri-Strips at the umbilicus. Patient verbalized understanding and agreement with this treatment plan. I also instructed patient on use of MiraLAX for her no bowel movement since Saturday. She is to call the doctor concerning this if she does not have a bowel movement by Saturday. - Vital Signs Vital signs: Temp Pulse Resp BP Pulse Ox 98.5 F 70 18 152/75 H 98 02/13/20 20:30 02/13/20 20:30 02/13/20 20:30 02/13/20 20:30 02/13/20 20:30 Discharge - Discharge Clinical Impression: Steri-Strips falling off surgical wound Condition: Stable Disposition: HOME, SELF-CARE Additional Instructions: You were seen today because your Steri-Strips were coming off of your surgical wounds. Care of Steri-Strip Closure Your cut has been closed up with a special surgical tape. For this type of cut, it can replace stitches. You must protect the wound just as you would with stitches, however. For the first few days, keep the wound area completely dry. This also means you should avoid activity which makes you sweat. Do not move the area if motion stretches or wrinkles the strips. Don't allow the area to be bumped -- if bleeding occurs, the blood can make the strips loosen. The strips are somewhat waterproof. After a few days, the physician may allow you to shower. Be sure to ask if it's OK. Do not remove the tape until it peels off by itself. At that time, the wound should be healed. You can use MiraLAX for your constipation. Use a stool softer as been instructed and then get MiraLAX at the grocery store [employer] any drugstore and use 1 capful in 8 ounces of water coughing what ever you want to drink again is better if it is in something hot. FOLLOW-UP CARE: If you have been referred to a physician for follow-up care, call the physicians office for an appointment as you were instructed or within the next two days. If you experience worsening or a significant change in your symptoms, notify the physician immediately or return to the Emergency Department at any time for re-evaluation. Forms: Elevated Blood Pressure Referrals: MAXI MENJIVAR MD [ACTIVE STAFF] - 02/15/20
== END 2020-02-13 21:42 | disposition home or self-care (01) ==
LOC: ER 20:26
DX: G89.18 Other acute postprocedural pain (principal); Z48.01 Encounter for change or removal of surgical wound dressing
CPT/HCPCS: 99283

== ENCOUNTER → 2020-05-03 | Outpatient (CLI) | payer OTHER ==
[2020-05-03 14:00] LABS: ABSOLUTE BASOPHILS # (AUTO) 0.1 10^3/uL (0.0-0.2); ABSOLUTE EOSINOPHILS # (AUTO) 0.2 10^3/uL (0.0-0.6); ABSOLUTE LYMPHOCYTES (AUTO) 3.8 10^3/uL (0.5-4.7); ABSOLUTE MONOCYTES (AUTO) 0.6 10^3/uL (0.1-1.4); BASOPHILS % (AUTO) 0.9 % (0-2); EOSINOPHILS % (AUTO) 2.1 % (0-6); HEMATOCRIT 42.3 % (36.0-47.0); LYMPHOCYTES % (AUTO) 39.3 % (13-45); MEAN CORPUSCULAR HEMOGLOBIN 28.1 pg (27.0-33.4); MEAN CORPUSCULAR HGB CONC 33.1 g/dL (32.0-36.0); MEAN CORPUSCULAR VOLUME 85 fl (80-97); MONOCYTES % (AUTO) 6.4 % (3-13); PLATELET COUNT 233 10^3/uL (150-450); RED CELL DISTRIBUTION WIDTH 14.5 % (11.5-14.0); SEGMENTED NEUTROPHILS % (AUTO) 51.3 % (42-78); TOTAL CELLS COUNTED % (AUTO) 100 %; WHITE BLOOD COUNT 9.8 10^3/uL (4.0-10.5)
[2020-05-03 14:29] LABS: ALBUMIN 4.4 g/dL (3.5-5.0); ALKALINE PHOSPHATASE 105 U/L (38-126); ANION GAP 11 (5-19); ASPARTATE AMINO TRANSFERASE 43 U/L (14-36); BILIRUBIN,DIRECT 0.3 mg/dL (0.0-0.4); BILIRUBIN,TOTAL 0.5 mg/dL (0.2-1.3); BLOOD UREA NITROGEN 17 mg/dL (7-20); CALCIUM 9.9 mg/dL (8.4-10.2); CARBON DIOXIDE 30 mmol/L (22-30); CHLORIDE 101 mmol/L (98-107); GLUCOSE 137 mg/dL (75-110); TOTAL PROTEIN 7.5 g/dL (6.3-8.2)
== END ==
LOC: OD 12:55
PROVIDERS: ATTEND Family Medicine
DX: R19.7 Diarrhea, unspecified (principal)
CPT/HCPCS: 36415; 80053; 83690; 85025

== ENCOUNTER → 2020-08-02 | Outpatient (CLI) | payer OTHER ==
--- NOTE | 2020-08-02 09:20 | WOMENS IMAGING REPORT ---
EXAM DESCRIPTION: 3D SCREENING MAMMO BILAT IMAGES COMPLETED DATE/TIME: 08/02/2020 6:11 am REASON FOR STUDY: Z12.31 ENCNTR SCREEN MAMMOGRAM FOR MALIGNANT NEOPLASM OF BREAST Z12.31 ENCNTR SCR EEN MAMMOGRAM FOR MALIGNANT NEOPLASM OF [place] COMPARISON: 07/29/2019, 07/28/2018, 07/25/2017, 06/14/2016 EXAM PARAMETERS: Views: Standard craniocaudal and mediolateral oblique views of each breast recorded using digital acquisition and breast tomosynthesis. Read with the assistance of CAD. .[facility] - R2 Senior Operations Analyst Version 9.2 LIMITATIONS: None. FINDINGS: No suspicious masses, suspicious calcifications or architectural distortion. No areas of c oncern. IMPRESSION: NEGATIVE MAMMOGRAM. BIRADS 1. BREAST DENSITY: a. The breasts are almost entirely fatty. BIRAD: ASSESSMENT: 1 NEGATIVE RECOMMENDATION: ROUTINE SCREENING COMMENT: The patient has been notified of the results by letter per MQSA requirements. Additional no tification policies are in place for contacting patient with suspicious or incomplete findings. Quality ID #225: The [employer] recommends an annual screening mammogram for women aged 40 years or over. This facility utilizes a reminder system to ensure that all patients receive reminder letters, and/or direct phone calls for appointments. This includes reminders for routine scr eening mammograms, diagnostic mammograms, or other Breast Imaging Interventions when appropriate. Th is patient will be placed in the appropriate reminder system. TECHNICAL DOCUMENTATION: FINDING NUMBER: (1) ASSESSMENT: (1) JOB ID: [id number] 2010 [employer]- All Rights Reserved Reading location - IP/workstation name: [email or web address]
== END ==
LOC: WI 06:59
PROVIDERS: ATTEND Family Medicine
DX: Z12.31 Encounter for screening mammogram for malignant neoplasm of breast (principal)
CPT/HCPCS: 77063; 77067